=== PATIENT | female | born 1960 | race Caucasian/White ===

== ENCOUNTER → 2016-12-31 | Outpatient (CLI) | payer BC | LOC: RAD 08:24 | PROVIDERS: ATTEND Family Medicine | DX: Z12.31 Encounter for screening mammogram for malignant neoplasm of breast (principal) ==

== ENCOUNTER → 2017-03-16 | Outpatient (CLI) | payer BC ==
[~2017-03-16] MED LIST: AZIT250T5 PO; AZIT250T81 PO; NO HOME MEDICATIONS; OMEG500C PO; PRCD5U PO; RALO60TA PO
--- NOTE | 2017-03-16 13:51 | Diagnostic Imaging Report ---
INDICATION: Postmenopausal, screening for osteoporosis. COMPARISON: 11/29/2013. DISCUSSION: Bone mineral density measurements of the lumbar spine and bilateral hips was performed on a [employer] DEXA scanner. Bone mineral density of the lumbar spine, L2-L4, measures 1.039 g/cm2 which correlates to a T score of -1.3, osteopenic. No statistically significant interval change in bone mineral density of the lumbar spine. Bone mineral density of the right hip measures 0.810 g/cm2 which correlates to a T score of -1.6, osteopenic. Bone mineral density of the left hip measures 0.757 g/cm2 which correlates to a T score of -2.0, osteopenic. No statistically significant interval change in BMD measurements of the hips. Exam is considered osteopenic by World Health Organization guidelines. Recommend one year followup DEXA scan. Recommend initiation of treatment. There is an associated moderate increased fracture risk due to underlying osteopenia. IMPRESSION: 1. Low bone mineral density within the spine and bilateral hips is within the osteopenic range with a moderate increased fracture risk. 2. No statistically significant interval change in bone mineral density measurements. Dictated by: Dictated on workstation # [id number]
== END ==
LOC: RAD 10:25
PROVIDERS: ATTEND Family Medicine
DX: M81.0 Age-related osteoporosis without current pathological fracture (principal)
CPT/HCPCS: 77080